=== PATIENT | female | born 1945 | race Caucasian/White ===

== ENCOUNTER 2022-06-05 10:14 | Outpatient (REF) | payer MEDICARE, SELFPAY ==
[2022-06-05 10:37] LABS: Creatinine,Urine 21.96 mg/dL
[2022-06-05 10:42] LABS: Creatinine,24hr Ur 0.59 g/24hr (0.60-1.80); Total Volume 2700 ml
[2022-06-06 08:54] LABS: Calcium Urine 24 hr 162 mg/24hrs (100-300); Timed Urine Volume 2700 mL
== END 2022-06-05 10:15 | disposition home or self-care (01) ==
LOC: LBN 10:14
PROVIDERS: PCP Neuromusculoskeletal Medicine & OMM; Visit Provider Internal Medicine Endocrinology, Diabetes & Metabolism
DX: M81.0 Age-related osteoporosis without current pathological fracture (principal)
CPT/HCPCS: 81050; 82340; 82570

== ENCOUNTER 2023-10-07 19:34 | Observation (INO) | payer MEDICARE, SELFPAY ==
[2023-10-07] VITALS (38 sets, daily range): BP systolic 117–168; BP diastolic 57–85; PULSE 71–92; RESP 14–29; TEMP 36.8; O2SAT 89–96
--- NOTE | 2023-10-07 19:45 | RT.EKG_ITS ---
APPROVED REPORT Exam: Resting ECG Reason for Exam: shortness of breath Patient Location: E HR:80 bpm ECG Measurements Heart Rate 80 AXIS WY 161 P 69 QRSd 83 QRS 42 QT 366 T 99 QTc 422 Conclusion Sinus rhythm...normal P axis, V-rate 60- 99 sinus rhtyhm, normal axis, low voltage, non ischemic
--- NOTE | 2023-10-07 19:55 | W.ED.GENAD ---
Discharge Plan Disposition Patient Disposition: Admit to [facility] Condition: Stable Discharge Details Clinical Impression: Malignant pleural effusion, Pneumonia, Hypokalemia Primary Care Provider: Omar Mcgowan ED Provider: Tulio Noble Home Meds and New Rx's Prescriptions: No Action multivitamin 1 EACH tablet 1 ea PO DAILY naproxen sodium 220 MG capsule 220 mg PO PRN Rx Instructions: and additional tab prn calcium carbonate-vitamin D3 [Caltrate with Vitamin D3] 1 EACH tablet 2 tab PO DAILY flaxseed 1,000 MG capsule 2 cap PO DAILY esomeprazole magnesium [Nexium] 40 MG capsule,delayed release(DR/EC) 40 mg PO BID sertraline 100 MG tablet 2 tab PO HS Qty: 180 levothyroxine 125 MCG tablet 125 mcg PO DAILY Qty: 90 budesonide-formoterol [Symbicort] 10.2 GM HFA aerosol inhaler 10.2 gm Inhalation BID Qty: 3 HPI General Date/Time Provider Initiated Documentation: 10/07/23 19:55. HPI Narrative: 78 year-old female presents to ED today by POV/wheelchair with a chief complaint of cough, malaise, recent hospitalization at [facility] with pleural effusions, pericardial effusions, likely lung malignancy, and has ostomy placement while there as well, with onset of malaise today- states has been coughing up white mucous. Quality described as chills, cough, mild SOB- on O2 by NC- was 88% at home on RA, no radiation to intractable nausea/vomiting, is tolerating PO intake, ostomy working correctly, denies headache. Severity is described as moderate. Palliating factors include one dose Tylenol. Provoking factors include nothing specific. Events leading up to the incident/Associated Symptoms: [facility] did talk about [facility] with her at her visit there. Has upcoming ostomy eval appointment , has pulmonology appointment for PFTs November 07. Patient not anticoagulated. Related Data Home Medications Medication Instructions Recorded Confirmed calcium carbonate 600 mg-vitamin 2 tab PO DAILY 07/23/12 D3 20 mcg (800 unit) tablet (Caltrate with Vitamin D3) flaxseed 1,000 mg capsule 2 cap PO DAILY 07/23/12 multivitamin 1 ea PO DAILY 07/23/12 naproxen sodium 220 mg capsule 220 mg PO PRN 07/23/12 esomeprazole magnesium 40 mg 40 mg PO BID 12/02/12 capsule,delayed release (Nexium) budesonide-formoterol HFA 160 10.2 gm inhalation BID ##3 06/25/13 mcg-4.5 mcg/actuation aerosol inhaler (Symbicort) levothyroxine 125 mcg tablet 125 mcg PO DAILY #90 tab-caps 06/25/13 sertraline 100 mg tablet 2 tab PO HS #180 tab-caps 06/25/13 Allergies Allergy/AdvReac Type Severity Reaction Status Date / Time morphine AdvReac GI Upset Unverified 06/25/13 10:52 General Stated Complaint: SOB LOUIE: 3 Review of Systems All systems reviewed & are unremarkable except as noted in HPI and below Exam Narrative Exam Narrative: GENERAL APPEARANCE: Cachectic, non-toxic, awake and alert, atraumatic, no acute distress. SKIN: Warm, pink, dry, intact, without rashes/lesions/ulcerations. HEAD: Normocephalic, atraumatic, normal hair distribution for gender/age. EYES: Pupils PERRLA, EOMs intact without nystagmus, normal conjunctiva, no exudates on lids/lashes. ENT: Nares patent, no circumoral cyanosis, no facial swelling NECK: Supple, trachea midline, painless cervical ROM. LUNGS/CHEST: Lungs CTA bilaterally- diffuse rhonchorous, no wheezing, no rales at bases, non-labored respirations, normal A/P diameter, symmetrical expansion, no chest wall deformity HEART (CV/PV): Regular rate and rhythm without murmur, no peripheral edema, no JVD. ABDOMEN: Soft, non-distended, no guarding, mild epigastric tenderness. MSK: Normal ROM, no swelling/deformity to bilateral UEs or LEs, moving all extremities without weakness, no cyanosis, spine midline without tenderness, normal curvature. NEURO: Mental Status AAOx4 - alert to person, place, time, events No facial droop, no forehead involvement. Motor: No focal weakness - strength 5/5 in bilateral UEs and LEs, proximal and distal, symmetric. Sensory: sensation intact to light touch globally. Gait NT. PSYCH: euthymic, cooperative, pleasant, appropriate speech Course Vital Signs Vital signs: Vital Signs Temperature 36.8 C 10/07/23 19:41 Pulse 92 H 10/07/23 19:41 Respiratory Rate 24 10/07/23 19:41 Blood Pressure 168/85 H 10/07/23 19:41 Pulse Oximetry 92 10/07/23 19:41 Temperature 36.8 C 10/07/23 19:41 Temperature Source Oral 10/07/23 19:41 Pulse 92 H 10/07/23 19:41 Respiratory Rate 24 10/07/23 19:41 Respiratory Effort Normal 10/07/23 19:49 Blood Pressure 168/85 H 10/07/23 19:41 Blood Pressure Position Sitting 10/07/23 19:41 Pulse Oximetry 92 10/07/23 19:41 Oxygen Delivery Method Nasal Cannula 10/07/23 19:41 Oxygen Flow Rate 5 10/07/23 19:41 Medical Decision Making This dictation utilizes [id number] dictation software and may contain unedited grammatical errors. 78 y/o F presents to ED today with a chief complaint of malaise, cough, chills/fever, productive with white mucous- recent hospitalization at [facility] with pleural effusions/chest tubes, pericardial effusion with paracardiocentesis, sepsis- now has ostomy. Patient is being worked up for suspicion of lung CA by [facility]- now with general malaise after discharge- was 88% on RA- now on O2. Patients' medical history: Zamora's esophagus, COPD, GERD, osteopenia, thyroid nodule. Family and social history: Tobacco use, otherwise noncontributory, no exercise regimen. Pertinent exam findings / vital signs include diffuse rhonchorous lungs, cachectic, epigastric tenderness, nontoxic vital signs, no respiratory distress. Differential / pathologies of concern include PE, malignancy, pneumonia, respiratory distress, viral syndrome, pericardial effusion, pleural effusions. Diagnostic studies of: -EKG, CBC, CMP, lipase, magnesium, procalcitonin, troponin, BNP, lactate, D-dimer, COVID/flu/RSV PCR, blood cultures, CTA chest PE study. -CBC shows leukocytosis of 10.8, anemia of 9.2 -D-dimer 2077 -Lactate negative, procalcitonin negative do not suspect sepsis -BNP mildly elevated at 628 -Troponin negative with reliable onset -Magnesium mild low 1.7 would replete with normal p.o. intake, giving 1 g IV -Potassium significantly low at 2.6, likely requires repletion IV and admission -EKG shows sinus rhythm at 80 bpm with P waves followed by narrow complex QRS, normal axis deviation, flattened T waves without overt U waves, no ST changes of ischemia, normal QT QTc -CTA shows large R sided lung CA with malignant pleural effusion, spread to mediastinum, question some post-obstructive pneumonia in R lower lobes Interventions of: -IV Ceftriaxone, IV K+ repletion ED Course/Assessment/Plan: 78-year-old female presents with some mild shortness of breath after discharge from [facility], she was transferred initially there from [facility] from a sepsis admit. In the course of her [facility] admission she received an ostomy, had bilateral chest tubes for bilateral pleural effusions, pericardiocentesis for pericardial effusion. She has an appointment with thoracic surgeon in October. She is resting comfortably on 2 L by nasal cannula at 94%, in no respiratory distress, CTA of her chest was performed due to elevated D-dimer which shows significant right-sided pleural effusion as well as some element of possible postobstructive pneumonia. She had initially refused the offer of comfort care at [facility]. She has hypokalemia with flattened T waves and EKG changes likely warranting IV repletion, she could use some IV antibiotics here for her pneumonia. Plan for inpatient consult with [facility] pulmonology and possible palliative care consults. Notes are incoming by fax from [facility], and images are pushed to [facility] in case of in-patient consult with pulm/thoracic. Findings not consistent with respiratory failure, sepsis. Disposition of Pneumonia, Hypokalemia, Malignant Pleural Effusion. Patient verbalized understanding of the plan and return to ED criteria and engaged in shared decision making. Medical Records Medical records reviewed: Yes I reviewed the patient's medical records. Imaging Data Radiologic Study: Attestation: I personally reviewed and interpreted this imaging study as follows: Imaging: CT Scan Radiologist's impression: Exam: CTA Chest With Contrast Exam date and time: 10/07/2023 9:40 PM Age: 78 years old Clinical indication: Other: Elev. D-dimer, recent pleural effusions TECHNIQUE: Imaging protocol: Computed tomographic angiography of the chest with contrast. Exam focused on the arteries. 3D rendering (Not supervised by radiologist): MIP and/or 3D reconstructed images were created by the technologist. Contrast material: 350; Contrast volume: 60 ml; Contrast route: INTRAVENOUS (IV); COMPARISON: No relevant prior studies available. FINDINGS: Pulmonary arteries: No pulmonary embolism identified. Aorta: No thoracic aortic aneurysm or dissection. Lungs: Emphysema. Postobstructive atelectasis of the right lower lobe. Postobstructive pneumonia not excluded. Pleural spaces: Large right-sided pleural effusion, possibly loculated, presumably malignant given other findings. Abnormal masslike posterior pleural thickening on the right suspicious for pleural metastatic disease. Small left pleural effusion. No pneumothorax. Heart: Normal-sized heart. Lymph nodes: Bulky mediastinal adenopathy with bulky abnormal masslike soft tissue at the right pulmonary hilum encasing and narrowing the right hilar bronchial and vascular structures. Bones/joints: Lower ribs partially excluded from view and incompletely evaluated. Otherwise, no acute fracture seen among the bones of the chest. Old fracture through the mid body of the sternum. Mild thoracic kyphosis. Soft tissues: No gross soft tissue mass or fluid collection seen in the chest wall. IMPRESSION: 1. Imaging findings suggest a large right-sided lung cancer at the pulmonary hilum with encasement and narrowing of the right hilar bronchial and vascular structures, bulky metastatic adenopathy in the mediastinum, a large malignant right-sided pleural effusion, and pleural metastatic disease on the right. That said, tissue and/or fluid sampling will likely be required for definitive diagnosis. 2. Postobstructive atelectasis in the right lower lobe. Postobstructive pneumonia may also be present. 3. Small left pleural effusion. 4. No pulmonary embolism identified. Dictated and Authenticated by: Yong Merlos MD. Ordering:PAOLA Antunez MD Lab Data Lab results reviewed: Yes I reviewed the patient's lab results. Labs: 10/07/23 20:19 Blood Blood Culture - Pending 10/07/23 20:00 Blood Blood Culture - Pending Laboratory Tests Range/Units 10/07/23 20:19 WBC (4.4-10.8) 10^3/uL 10.82 H RBC (3.93-5.22) 10^6/uL 3.27 L Hgb (11.2-15.7) g/dL 9.2 L Hct (36.0-46.0) % 28.4 L MCV (80-95) fL 87 MCH (27.0-33.0) pg 28.1 MCHC (32.0-36.0) % 32.4 RDW (11.7-14.6) % 16.2 H Plt Count (130-400) 10^3/uL 574 H MPV (8.0-11.0) fL 9.7 Immature Gran % % 0.3 Neutrophils % % 75.6 Lymphocytes % % 14.6 Monocytes % % 7.0 Eosinophils % % 1.8 Basophils % % 0.7 Nucleated RBC % (0.0-0.3) % 0.0 Absolute Neutrophils (1.2-6.7) 10^3/uL 8.18 H Absolute Lymphocytes (1.2-3.4) 10^3/uL 1.58 Absolute Monocytes (0.1-0.8) 10^3/uL 0.76 Absolute Eosinophils (0.0-0.7) 10^3/uL 0.19 Absolute Basophils (0.0-0.2) 10^3/uL 0.08 D-Dimer (<500) ng/mlFEU 2077 H VBG Lactate (0.6-1.4) mmol/L 0.9 Sodium (136-145) mmol/L 134 L Potassium (3.5-5.1) mmol/L 2.6 L* Chloride (98-107) mmol/L 100 Carbon Dioxide (21.0-32.0) mmol/L 22.7 Anion Gap (3-11) mmol/L 11.3 H BUN (7-18) mg/dL 20 H Creatinine (0.55-1.02) mg/dL 0.6 Est GFR (CKD-EPI 2020) (mL/min/1.73m2) 91.25 Glucose (74-106) mg/dL 106 Calcium (8.5-10.1) mg/dL 8.3 L Magnesium (1.8-2.4) mg/dL 1.7 L Total Bilirubin (0.2-1.0) mg/dL 0.3 AST (15-37) U/L 17 ALT (14-59) U/L 19 Alkaline Phosphatase (46-116) U/L 68 Troponin I (< or =60) ng/L < 50 NT-Pro-B Natriuret Pep (<300) pg/mL 628 H Total Protein (6.4-8.2) g/dL 7.5 Albumin (3.4-5.0) g/dL 2.8 L Lipase (16-77) U/L 36 Procalcitonin ng/mL 0.1 Quality:SDOH Health Related Social Needs: No Data to Display PFSH All Active Problems (Updated 10/07/23 @ 23:14 by SANKET Acuna) Hypokalemia (Acute) Pneumonia (Acute) Malignant pleural effusion (Acute) Social History Smoking/Tobacco Use Status: Never Smoking risk assessment performed?: Yes Alcohol Intake: current Alcohol Intake frequency: holidays/special occasions only Substance use type: does not use
[2023-10-07 20:24] LABS: Lactate 0.9 mmol/L (0.6-1.4)
[2023-10-07 20:31] LABS: Abs Immature Grans 0.03 10^3/uL (0.0-0.06); Absolute Basophil Count 0.08 10^3/uL (0.0-0.2); Absolute Lymphocyte Count 1.58 10^3/uL (1.2-3.4); Absolute Monocyte Count 0.76 10^3/uL (0.1-0.8); Basophils % 0.7 %; Eosinophils % 1.8 %; HCT 28.4 % (36.0-46.0); HGB 9.2 g/dL (11.2-15.7); Immature Grans % 0.3 %; Lymphocytes % 14.6 %; MCH 28.1 pg (27.0-33.0); MCHC 32.4 % (32.0-36.0); MCV 87 fL (80-95); MPV 9.7 fL (8.0-11.0); Neutrophils % 75.6 %; Platelet Count 574 10^3/uL (130-400); RBC 3.27 10^6/uL (3.93-5.22); RDW 16.2 % (11.7-14.6); RDW-SD 50.5 fL; WBC 10.82 10^3/uL (4.4-10.8)
[2023-10-07 20:36] LABS: Absolute Eosinophil Count 0.19 10^3/uL (0.0-0.7); Absolute Neutrophil Count 8.18 10^3/uL (1.2-6.7)
[2023-10-07 20:57] LABS: ALT 19 U/L (14-59); AST 17 U/L (15-37); Albumin 2.8 g/dL (3.4-5.0); Alkaline Phosphatase 68 U/L (46-116); Anion Gap 11.3 mmol/L (3-11); BUN 20 mg/dL (7-18); Bilirubin, Total 0.3 mg/dL (0.2-1.0); CO2 22.7 mmol/L (21.0-32.0); CREATININE 0.6 mg/dL (0.55-1.02); Calcium 8.3 mg/dL (8.5-10.1); Chloride 100 mmol/L (98-107); D-Dimer 2077 ng/mlFEU (<500); Estimated GFR 91.25 (mL/min/1.73m2); Glucose 106 mg/dL (74-106); Lipase 36 U/L (16-77); Magnesium 1.7 mg/dL (1.8-2.4); NT-proBNP 628 pg/mL (<300); Sodium 134 mmol/L (136-145); Total Protein 7.5 g/dL (6.4-8.2); Troponin I < 50 ng/L (< or =60)
[2023-10-07 20:59] LABS: Potassium 2.6 mmol/L (3.5-5.1)
[2023-10-07 21:03] LABS: Procalcitonin 0.1 ng/mL
--- NOTE | 2023-10-07 21:07 | DI.CT_ITS ---
Exam(s) CT CHEST PE CTA EXAM: CT CHEST PE CTA CLINICAL HISTORY: elev. d-dimer, recent pleural effusions. TECHNIQUE: Imaging Protocol: Axial CT angiography was performed with multi-slice acquisition and mu lti-planar reconstructions as well as axial, coronal and sagittal MIP reconstructions. CONTRAST MATERIAL: Intravenous: Omnipaque 350 Contrast volume:60 ml COMPARISON: No exams were available for comparison FINDINGS: Pulmonary Arteries: No evidence of filling defect to suggest pulmonary emboli. Vascular encasement in right hilar region but no evidence of obstruction. Tracheobronchial tree: No mucous plugging. Mediastinum and Cece: Bulky adenopathy seen in the subcarinal, right hilar, right paratracheal as wel l as superior mediastinum. Pulmonary parenchyma: Significant collapse of right lower lobe. Severe emphysematous changes. Pleura: Large right pleural effusion. Pleural thickening seen inferiorly. No pneumothorax. Abnorm al soft asymmetric thickening anterior right chest wall deep to the ribs. Trace left pleural effusio n. Heart: The heart is not dilated. No coronary artery calcifications are seen. Aorta: Thoracic aorta non-dilated. No dissection. Upper abdomen: No acute findings. Bones: Old sternal fracture. Compression fractures lower thoracic spine. Noted definite destructive bony lesion. Tubes, Catheters, and Lines: None Soft tissues: Unremarkable. IMPRESSION: Right perihilar mass with CT vascular encasement. Bulky mediastinal adenopathy. Large right pleural effusion with pleural thickening. Probable pleural metastasis anteriorly. Posto bstructive changes with significant atelectasis in the right lower lobe. Severe underlying emphysema. No evidence of pulmonary embolism. RADIATION DOSE DELIVERED: Total DLP DATA REPOSITORY: All CT scans at this facility are submitted to the National Radiology Data Registry (NRDR) Dose Index Registry (DIR) with the [employer] (ACR). RADIATION OPTIMIZATION: All CT scans at this facility use at least one of these dose optimization te chniques: automated exposure control; mA and/or kV adjustment per patient size (includes targeted exa ms where dose is matched to clinical indication); or iterative reconstruction.
[2023-10-07] MEDS: Normal Saline - Diluent 50 ML VIAL IJ (21:27)
[2023-10-07] MEDS: Omnipaque 350 MG/ML 100 ML BTL IJ (21:35)
[2023-10-07] MEDS: MAGNESIUM SULFATE 1 GM/100 ML BAG IVINF (21:59)
--- NOTE | 2023-10-07 22:05 | NUR.NOTE ---
Nursing Note:verbal order by SANKET Asencio to infuse Magnesium infusion over 30 minutes.
[2023-10-07] MEDS: POTASSIUM CHLORIDE 20 MEQ/100 ML BAG 50 MEQ IVINF (22:35)
[2023-10-07 22:53] LABS: COVID-19 PCR Negative (Negative); Influenza A PCR Negative (Negative); Influenza B PCR Negative (Negative); RSV PCR Negative (Negative)
[2023-10-07 22:54] LABS: Source Nasopharynx
--- NOTE | 2023-10-07 22:57 | DI.VRAD_ITS ---
Addendum created by Yong Merlos MD on 10/07/2023 11:00:41 PM EDT: This case was discussed personally with ALISSON RIDDLE at 11:00 PM EDT on 10/07/2023. Initial report created on 10/07/2023 10:56:47 PM EDT: PROCEDURE INFORMATION: Exam: CTA Chest With Contrast Exam date and time: 10/07/2023 9:40 PM Age: 78 years old Clinical indication: Other: Elev. D-dimer, recent pleural effusions TECHNIQUE: Imaging protocol: Computed tomographic angiography of the chest with contrast. Exam focused on the arteries. 3D rendering (Not supervised by radiologist): MIP and/or 3D reconstructed images were created by the technologist. Contrast material: 350; Contrast volume: 60 ml; Contrast route: INTRAVENOUS (IV); COMPARISON: No relevant prior studies available. FINDINGS: Pulmonary arteries: No pulmonary embolism identified. Aorta: No thoracic aortic aneurysm or dissection. Lungs: Emphysema. Postobstructive atelectasis of the right lower lobe. Postobstructive pneumonia not excluded. Pleural spaces: Large right-sided pleural effusion, possibly loculated, presumably malignant given other findings. Abnormal masslike posterior pleural thickening on the right suspicious for pleural metastatic disease. Small left pleural effusion. No pneumothorax. Heart: Normal-sized heart. Lymph nodes: Bulky mediastinal adenopathy with bulky abnormal masslike soft tissue at the right pulmonary hilum encasing and narrowing the right hilar bronchial and vascular structures. Bones/joints: Lower ribs partially excluded from view and incompletely evaluated. Otherwise, no acute fracture seen among the bones of the chest. Old fracture through the mid body of the sternum. Mild thoracic kyphosis. Soft tissues: No gross soft tissue mass or fluid collection seen in the chest wall. IMPRESSION: 1. Imaging findings suggest a large right-sided lung cancer at the pulmonary hilum with encasement and narrowing of the right hilar bronchial and vascular structures, bulky metastatic adenopathy in the mediastinum, a large malignant right-sided pleural effusion, and pleural metastatic disease on the right. That said, tissue and/or fluid sampling will likely be required for definitive diagnosis. 2. Postobstructive atelectasis in the right lower lobe. Postobstructive pneumonia may also be present. 3. Small left pleural effusion. 4. No pulmonary embolism identified. Dictated and Authenticated by: Yong Merlos MD. Ordering:PAOLA Antunez MD
--- NOTE | 2023-10-07 23:50 | W.PM.HP.N ---
Date of service: 10/07/23 Time of Service: 23:50 Assessment and Plan Assessment and plan (1) SOB (shortness of breath): Status: Acute Assessment and plan: SOB. Likely multifactorial, entailing apparent progression of underlying disease (likely malignant), doubtfully infectious component and unknown contribution from anemia. Has already received dose of Rocephin but will not at this time schedule further dosing; will continue to replenish K both PO and IV; and will trend Hct, consider transfusion. Will maintain supplemental O2 as is. Patient does understand the likliehood that underlying disease is malignant, though it is emphasized that we do not as yet have tissue diagnosis. We also reviewed ADs in depth and after much discussion she states she is unable to come to a decision; will default then to Full Code. History of Present Illness History of Present Illness Chief Complaint: SOB Narrative: 78 female former smoker. In [facility] 09/02-09/11 with perforated diverticulitis eentuatin in colostomy. While at [facility] noted to have pericardial and pleural effusions. Pleural fluid yielded large cells suspicious for malignancy; apparently the pericardial fluid was not analyzed. Also noted extensive mediastinal adenopathy as well as RLL mass -- ? atelectasis. Comes in tonight with several days of SOB and cough. No CP, fever or chills. In ER w/u of note for O2 sats 89, white count 10, Hct 28 (I cannot find prior Hct for [facility]); K 2.6; EKG NSR with TW flattening; viral swab triple negative and CT showing previously known pleural effusions and adenopathy as well as what appears to be a newly described right hilar mass encasing the bronchial and vascular structures. Patient given Rocephin and potassium replacement, I was asked to evaluate for admission. At this time patient is expressing reservations about being admitted and questions whether she could go home and check in with [facility] in AM. After extensive discussions with her, her sister and [id number] she agrees to stay overnight. Review of Systems Narrative: per HPI PFSH All Active Problems (Updated 10/08/23 @ 00:04 by Claus Guthrie MD) SOB (shortness of breath) (Acute) Hypokalemia (Acute) Pneumonia (Acute) Malignant pleural effusion (Acute) Social History Smoking/Tobacco Use Status: Never Smoking risk assessment performed?: Yes Alcohol Intake: current Alcohol Intake frequency: holidays/special occasions only Substance use type: does not use Meds Allergies and Home Medications Allergies Allergy/AdvReac Type Severity Reaction Status Date / Time morphine AdvReac GI Upset Unverified 06/25/13 10:52 Home Medications Medication Instructions Recorded Confirmed Type calcium carbonate 600 mg-vitamin 2 tab PO DAILY 07/23/12 History D3 20 mcg (800 unit) tablet (Caltrate with Vitamin D3) flaxseed 1,000 mg capsule 2 cap PO DAILY 07/23/12 History multivitamin 1 ea PO DAILY 07/23/12 History naproxen sodium 220 mg capsule 220 mg PO PRN 07/23/12 History esomeprazole magnesium 40 mg 40 mg PO BID 12/02/12 History capsule,delayed release (Nexium) budesonide-formoterol HFA 160 10.2 gm inhalation BID ##3 06/25/13 History mcg-4.5 mcg/actuation aerosol inhaler (Symbicort) levothyroxine 125 mcg tablet 125 mcg PO DAILY #90 tab-caps 06/25/13 History sertraline 100 mg tablet 2 tab PO HS #180 tab-caps 06/25/13 History Exam Narrative Exam Narrative: 125/60, 75, 36.8, 20, 94% 5L. HEENT atraumatic, anicteric; neck supple; lungs absent breath sounds on right; heart didtant, RRR; abdomen soft and NT, osomy patent; extremities w/o edenma; neuro Ox3, lucid, moves all 4s Results Labs 10/07/23 20:19 10/07/23 20:19 Labs: Laboratory Results - last 24 hr 10/07/23 10/07/23 20:19 22:10 WBC 10.82 H RBC 3.27 L Hgb 9.2 L Hct 28.4 L MCV 87 MCH 28.1 MCHC 32.4 RDW 16.2 H Plt Count 574 H MPV 9.7 Immature Gran % 0.3 Neutrophils % 75.6 Lymphocytes % 14.6 Monocytes % 7.0 Eosinophils % 1.8 Basophils % 0.7 Nucleated RBC % 0.0 Absolute Neutrophils 8.18 H Absolute Lymphocytes 1.58 Absolute Monocytes 0.76 Absolute Eosinophils 0.19 Absolute Basophils 0.08 D-Dimer 2077 H VBG Lactate 0.9 Sodium 134 L Potassium 2.6 L* Chloride 100 Carbon Dioxide 22.7 Anion Gap 11.3 H BUN 20 H Creatinine 0.6 Est GFR (CKD-EPI 2020) 91.25 Glucose 106 Calcium 8.3 L Magnesium 1.7 L Total Bilirubin 0.3 AST 17 ALT 19 Alkaline Phosphatase 68 Troponin I < 50 NT-Pro-B Natriuret Pep 628 H Total Protein 7.5 Albumin 2.8 L Lipase 36 Procalcitonin 0.1 COVID-19 Source Nasopharynx SARS-CoV-2 (PCR) Negative Influenza Type A (PCR) Negative Influenza Type B (PCR) Negative RSV (PCR) Negative Last Vital Signs Temp 36.8 C 10/07/23 20:24 Pulse 75 10/07/23 23:31 Resp 20 10/07/23 23:32 BP 125/60 10/07/23 23:31 Pulse Ox 94 10/07/23 23:32 Time Spent Time spent with Patient: >75 minutes Time was spent: preparing to see the patient(eg.review tests), obtaining and/or reviewing separately otained hiistory, ordering medications,tests, procedures, referring, communicating with other health critical care rn and indepentently interpreting results
[2023-10-08] VITALS (16 sets, daily range): BP systolic 125–170; BP diastolic 62–82; PULSE 71–92; RESP 15–33; TEMP 36.2–37.5; O2SAT 90–95
[2023-10-08] MEDS: POTASSIUM CHLORIDE 20 MEQ/100 ML BAG 50 MEQ IVINF (01:17)
[2023-10-08] MEDS: Potassium Chloride 20 MEQ TABCR PO (02:21)
[2023-10-08] MEDS: POTASSIUM CHLORIDE/0.9% NACL 1,000 ML 80 MEQ IV (03:24)
[2023-10-08 06:58] LABS: HCT 31.9 % (36.0-46.0); HGB 10.4 g/dL (11.2-15.7); MCHC 32.6 % (32.0-36.0); MCV 86 fL (80-95); Platelet Count 582 10^3/uL (130-400); RBC 3.72 10^6/uL (3.93-5.22); RDW 16.4 % (11.7-14.6); RDW-SD 50.9 fL; WBC 9.91 10^3/uL (4.4-10.8)
[2023-10-08 07:13] LABS: Anion Gap 10.7 mmol/L (3-11); BUN 12 mg/dL (7-18); CO2 22.3 mmol/L (21.0-32.0); CREATININE 0.5 mg/dL (0.55-1.02); Calcium 7.9 mg/dL (8.5-10.1); Chloride 105 mmol/L (98-107); Estimated GFR 95.35 (mL/min/1.73m2); Glucose 104 mg/dL (74-106); Potassium 3.3 mmol/L (3.5-5.1); Sodium 138 mmol/L (136-145)
--- NOTE | 2023-10-08 13:26 | PGE_ITS ---
Date of Service Date of service: 10/08/23 Time of Service: 13:26 Assessment and Plan Assessment and plan (1) SOB (shortness of breath): Status: Acute Assessment and plan: Likely caused by growing perihilar lung mass with re-accumulation of malignant effusion She is now comfortable on 2 liters. She may need pleurocentesis to get off oxygen. I agree I don't think this is pneumonia. Clear mucous likely related to lung mass, likely cancer. see below (2) Hypokalemia: Status: Acute Assessment and plan: give additional potassium IV. Mg replaced. (3) Lung mass: Status: Acute Assessment and plan: with growth since recent discharge from [facility]. She needs a biopsy. She would be high risk given weight loss, poor nutritional status, and hypoxia. Call out to [facility] [place] surgery (Rober is her primary) (4) Anemia: Status: Chronic Assessment and plan: stable overnight, no active bleed. (5) S/P colostomy: Assessment and plan: getting low output/pancaking. Discussed fluids/diet. (6) DVT prophylaxis: Status: Acute Assessment and plan: hold for pending procedure, restart post-op. mechanical for now Subjective Subjective Patient reports: no new complaints, tolerating a regular diet and voiding w/o difficulty; denies nausea, vomiting or fever Interval history since last seen: Feels a little better, but still short of breath. She did eat some this morning. stool output into ostomy too thick, this is chronic issue. Exam Narrative Exam Narrative: GENERAL APPEARANCE: Cachectic, non-toxic, awake and alert, atraumatic, no acute distress. SKIN: Warm, pink, dry, intact, without rashes/lesions/ulcerations. EYES: MMM, conjunctiva clear LUNGS/CHEST: Lungs CTA bilaterally- diffuse rhonchorous, no wheezing, no rales. HEART (CV/PV): Regular rate and rhythm without murmur, no peripheral edema, no JVD. ABDOMEN: Soft, non-distended, no guarding, mild epigastric tenderness. PSYCH: euthymic, cooperative, pleasant, appropriate speech Objective Last Vital Signs Temp 37.3 C 10/08/23 11:07 Pulse 82 10/08/23 11:07 Resp 19 10/08/23 11:07 BP 146/66 H 10/08/23 11:07 Pulse Ox 92 10/08/23 11:07 Laboratory Results - last 24 hr 10/07/23 10/07/23 10/08/23 20:19 22:10 06:17 WBC 10.82 H 9.91 RBC 3.27 L 3.72 L Hgb 9.2 L 10.4 L Hct 28.4 L 31.9 L MCV 87 86 MCH 28.1 28.0 MCHC 32.4 32.6 RDW 16.2 H 16.4 H Plt Count 574 H 582 H MPV 9.7 10.0 Immature Gran % 0.3 Neutrophils % 75.6 Lymphocytes % 14.6 Monocytes % 7.0 Eosinophils % 1.8 Basophils % 0.7 Nucleated RBC % 0.0 Absolute Neutrophils 8.18 H Absolute Lymphocytes 1.58 Absolute Monocytes 0.76 Absolute Eosinophils 0.19 Absolute Basophils 0.08 D-Dimer 2077 H VBG Lactate 0.9 Sodium 134 L 138 Potassium 2.6 L* 3.3 L Chloride 100 105 Carbon Dioxide 22.7 22.3 Anion Gap 11.3 H 10.7 BUN 20 H 12 Creatinine 0.6 0.5 L Est GFR (CKD-EPI 2020) 91.25 95.35 Glucose 106 104 Calcium 8.3 L 7.9 L Magnesium 1.7 L Total Bilirubin 0.3 AST 17 ALT 19 Alkaline Phosphatase 68 Troponin I < 50 NT-Pro-B Natriuret Pep 628 H Total Protein 7.5 Albumin 2.8 L Lipase 36 Procalcitonin 0.1 COVID-19 Source Nasopharynx SARS-CoV-2 (PCR) Negative Influenza Type A (PCR) Negative Influenza Type B (PCR) Negative RSV (PCR) Negative Time Spent with Patient Time Spent with Patient: 35-49 minutes Time was spent: preparing to see the patient(eg.review tests), obtaining and/or reviewing separately otained hiistory, ordering medications,tests, procedures, referring, communicating with other health field care manager, indepentently interpreting results, counseling the patient and care coordination
[2023-10-08] MEDS: POTASSIUM CHLORIDE 10 MEQ/100 ML BAG 100 MEQ IVINF (14:53)
--- NOTE | 2023-10-08 16:20 | W.PM.DS.N ---
Date of service: 10/08/23 Time of Service: 16:20 DS: Diagnosis Discharge Diagnosis (1) SOB (shortness of breath): Status: Acute (2) Hypokalemia: Status: Acute (3) Lung mass: Status: Acute (4) Anemia: Status: Chronic (5) S/P colostomy: (6) DVT prophylaxis: Status: Acute Discharge Plan Disposition Patient Disposition: Transfer-Acute Inpatient Care Specific Acute Inpt Facility: [facility] Condition: Fair Discharge Details Reason For Visit: SOB Admit Date/Time: 10/08/23 00:28 Admit Provider: Claus Guthrie Attending Provider: Claus Guthrie Primary Care Provider: Omar Mcgowan [facility] Hospital Course: 78 yo F with recent complicated admission with perforated diverticulum and colostomy, with lung mass and pleural effusion found at that admission, who presented with increased shortness of breath and clear sputum production. She was hypoxic to the high 80s on room are, felt better with oxygen via nasal cannula. CT on admission showed apparent evolution of right sided lung mass. Pleaural effusion not severe. She did not have fever or elevated WBC or procalcitonin. Antibiotics for possible post-obstructive pneumonia were considered but not given. Magnesium and potassium were replaced while she was here. Case discussed with Dr. Richter from [facility] [place] [facility], who accepted the patient for transfer for biopsy. Patient and family agree with this plan. Home Meds and New Rx's Prescriptions: No Action naproxen sodium 220 MG capsule 220 mg PO PRN Rx Instructions: and additional tab prn calcium carbonate-vitamin D3 [Caltrate with Vitamin D3] 1 EACH tablet 2 tab PO DAILY esomeprazole magnesium [Nexium] 40 MG capsule,delayed release(DR/EC) 40 mg PO BID sertraline 100 MG tablet 2 tab PO HS Qty: 180 levothyroxine 125 MCG tablet 125 mcg PO DAILY Qty: 90 budesonide-formoterol [Symbicort] 10.2 GM HFA aerosol inhaler 10.2 gm Inhalation BID Qty: 3 Discharge Instructions Activity:: Activity as Tolerated Equipment/Supplies:: Oxygen (L/min Below) Diet:: NPO at midnight Discharge Orders Discharge Orders: Discharge Order (Routine); Ordered 10/08/23 Ordered By: Avel Espinosa DS: Summary Time Spent with Patient providing and/or coordinating discharge services: Greater than 30 minutes Status at Discharge Functional status at discharge: independent ambulation Overall status at discharge: patient is not back to baseline Mental Status: mental status grossly normal Speech and Movement: speech and movement normal Mood: congruent mood Affect: normal affect Quality:SDOH Health Related Social Needs: No Data to Display Exam Narrative Exam Narrative: GENERAL APPEARANCE: Cachectic, non-toxic, awake and alert, atraumatic, no acute distress. SKIN: Warm, pink, dry, intact, without rashes/lesions/ulcerations. EYES: MMM, conjunctiva clear LUNGS/CHEST: Lungs CTA bilaterally- diffuse rhonchorous, no wheezing, no rales. HEART (CV/PV): Regular rate and rhythm without murmur, no peripheral edema, no JVD. ABDOMEN: Soft, non-distended, no guarding, mild epigastric tenderness. PSYCH: euthymic, cooperative, pleasant, appropriate speech Psych Mental Status: mental status grossly normal Speech and Movement: speech and movement normal Mood: congruent mood Affect: normal affect DS: Data Vitals/I&O Vitals and I&O: Vital Signs Temperature 36.2 C L 10/08/23 15:32 Temperature Source Tympanic 10/08/23 15:32 Pulse 92 H 10/08/23 15:32 Pulse Rhythm Regular 10/08/23 14:00 Pulse 71 10/08/23 00:50 Respiratory Rate 17 10/08/23 15:32 Respiratory Effort Normal, Non-Labored 10/08/23 14:00 Respiratory Depth Normal 10/08/23 14:00 Respiratory Pattern Normal 10/08/23 14:00 Blood Pressure 140/80 10/08/23 15:32 Blood Pressure Mean 95 10/08/23 00:46 Blood Pressure Position Supine 10/07/23 20:24 Pulse Oximetry 92 10/08/23 15:32 Oxygen Delivery Method Nasal Cannula 10/08/23 15:32 Oxygen Flow Rate 2 10/08/23 15:32 Pain Level 0 10/08/23 11:07 Intake & Output 10/07/23 10/08/23 10/08/23 23:59 11:59 23:59 Intake Total 100 / 100 570 / 670 100 / 670 Output Total 200 / 200 Balance 100 / 100 370 / 470 100 / 470 Weight 49.895 kg 48.262 kg Intake: IV 100 / 100 200 / 300 100 / 300 Oral 370 / 370 Output: Urine 200 / 200 Other: Urine Color Yellow Urine Appearance Clear Clear Urine Odor Normal Stool Size Moderate Stool Characteristics Formed Brown Voiding Methods Toilet Data Completed and Pending Labs on day of discharge: Labs from last 24 hours 10/08/23 10/07/23 10/07/23 06:17 22:10 20:19 WBC 9.91 10.82 H RBC 3.72 L 3.27 L Hgb 10.4 L 9.2 L Hct 31.9 L 28.4 L MCV 86 87 MCH 28.0 28.1 MCHC 32.6 32.4 RDW 16.4 H 16.2 H Plt Count 582 H 574 H MPV 10.0 9.7 Immature Gran % 0.3 Neutrophils % 75.6 Lymphocytes % 14.6 Monocytes % 7.0 Eosinophils % 1.8 Basophils % 0.7 Nucleated RBC % 0.0 Absolute Neutrophils 8.18 H Absolute Lymphocytes 1.58 Absolute Monocytes 0.76 Absolute Eosinophils 0.19 Absolute Basophils 0.08 D-Dimer 2077 H VBG Lactate 0.9 Sodium 138 134 L Potassium 3.3 L 2.6 L* Chloride 105 100 Carbon Dioxide 22.3 22.7 Anion Gap 10.7 11.3 H BUN 12 20 H Creatinine 0.5 L 0.6 Est GFR (CKD-EPI 2020) 95.35 91.25 Glucose 104 106 Calcium 7.9 L 8.3 L Magnesium 1.7 L Total Bilirubin 0.3 AST 17 ALT 19 Alkaline Phosphatase 68 Troponin I < 50 NT-Pro-B Natriuret Pep 628 H Total Protein 7.5 Albumin 2.8 L Lipase 36 Procalcitonin 0.1 COVID-19 Source Nasopharynx SARS-CoV-2 (PCR) Negative Influenza Type A (PCR) Negative Influenza Type B (PCR) Negative RSV (PCR) Negative 10/07/23 10:50 Blood Blood Culture - Pending 10/07/23 20:19 Blood Blood Culture - Pending Preliminary micro results at discharge 10/07/23 10:50 Blood Culture - Pending Blood 10/07/23 20:19 Blood Culture - Pending Blood PFSH All Active Problems (Updated 10/08/23 @ 13:52 by Avel Espinosa) DVT prophylaxis (Acute) Anemia (Chronic) Lung mass (Acute) SOB (shortness of breath) (Acute) Hypokalemia (Acute) Pneumonia (Acute) Malignant pleural effusion (Acute) Medical History (Updated 10/08/23 @ 13:52 by Avel Espinosa) Hypothyroid Surgical History (Updated 10/08/23 @ 13:47 by Avel Espinosa) H/O hernia repair S/P colostomy complicating perforated diverticulum after hernia surgery Social History Smoking/Tobacco Use Status: Never Smoking risk assessment performed?: Yes Alcohol Intake: current Alcohol Intake frequency: holidays/special occasions only Substance use type: does not use Housing: house Time Spent with Patient Time Spent with Patient: 45-69 minutes Time was spent: preparing to see the patient(eg.review tests), obtaining and/or reviewing separately otained hiistory, ordering medications,tests, procedures, referring, communicating with other health managed care coordinator, indepentently interpreting results, counseling the patient and care coordination
== END 2023-10-08 16:47 | disposition short-term general hospital (02) ==
LOC: ER 10-08 01:08 → MS 10-08 01:31
PROVIDERS: Admitting Provider General Practice; Emergency Provider Physician Assistant; PCP Neuromusculoskeletal Medicine & OMM; Visit Provider General Practice
DX: J90 Pleural effusion, not elsewhere classified (principal); R09.02 Hypoxemia; R06.02 Shortness of breath; R91.8 Other nonspecific abnormal finding of lung field; E87.6 Hypokalemia; D64.9 Anemia, unspecified; Z93.3 Colostomy status; R79.1 Abnormal coagulation profile; R59.0 Localized enlarged lymph nodes
CPT/HCPCS: 00123; 36415; 71275; 80048; 80053; 83690; 84145; 85027; 87040; 87637; 93005; 96361; 96365; 99285; 83605; 83735; 83880; 84484; 85025; 85379; 93010; 99233; 99239; G0378; J3475; J3480; J3490

== ENCOUNTER 2023-11-13 03:23 | Outpatient (CLI) | payer MEDICARE, SELFPAY ==
[2023-11-13 13:04] LABS: Abs Immature Grans 0.03 10^3/uL (0.0-0.06); Absolute Basophil Count 0.09 10^3/uL (0.0-0.2); Absolute Eosinophil Count 0.36 10^3/uL (0.0-0.7); Absolute Lymphocyte Count 1.68 10^3/uL (1.2-3.4); Absolute Monocyte Count 0.64 10^3/uL (0.1-0.8); Basophils % 0.9 %; Eosinophils % 3.7 %; HCT 30.7 % (36.0-46.0); HGB 9.4 g/dL (11.2-15.7); Immature Grans % 0.3 %; Lymphocytes % 17.1 %; MCH 26.9 pg (27.0-33.0); MCHC 30.6 % (32.0-36.0); MCV 88 fL (80-95); MPV 9.6 fL (8.0-11.0); Monocytes % 6.5 %; Neutrophils % 71.5 %; Platelet Count 574 10^3/uL (130-400); RBC 3.49 10^6/uL (3.93-5.22); RDW 15.7 % (11.7-14.6); RDW-SD 49.7 fL
[2023-11-13 13:23] LABS: ALT 19 U/L (14-59); AST 20 U/L (15-37); Albumin 3.3 g/dL (3.4-5.0); Alkaline Phosphatase 74 U/L (46-116); Anion Gap 8.7 mmol/L (3-11); BUN 17 mg/dL (7-18); Bilirubin, Total 0.34 mg/dL (0.2-1.0); CO2 26.3 mmol/L (21.0-32.0); CREATININE 0.7 mg/dL (0.55-1.02); Calcium 8.7 mg/dL (8.5-10.1); Chloride 102 mmol/L (98-107); Estimated GFR 87.92 (mL/min/1.73m2); Glucose 99 mg/dL (74-106); Potassium 3.2 mmol/L (3.5-5.1); Sodium 137 mmol/L (136-145); Total Protein 8.5 g/dL (6.4-8.2)
== END 2023-11-13 03:24 | disposition home or self-care (01) ==
PROVIDERS: PCP Neuromusculoskeletal Medicine & OMM; Visit Provider Physician Assistant Medical
DX: C79.81 Secondary malignant neoplasm of breast (principal); Z12.31 Encounter for screening mammogram for malignant neoplasm of breast; Z79.811 Long term (current) use of aromatase inhibitors
CPT/HCPCS: 36415; 80053; 85025